=== PATIENT | female | born 1960 ===

== ENCOUNTER 2018-09-09 21:47 | Emergency (ER) | payer MEDICAID ==
[2018-09-09 22:10] VITALS: BMI 30.9
[2018-09-09 22:14] VITALS: RESP 18; TEMP 98.4
--- NOTE | 2018-09-09 22:47 | ED PDOC ---
Arrival/HPI - General Chief Complaint: Pain, Chronic Time Seen by Provider: 09/09/18 22:02 Historian: Patient - History of Present Illness Narrative History of Present Illness (Text): 09/09/18 22:53 57-year-old female presents today with a one-month history of right sided neck pain. Patient states the pain started one month ago when she woke up from sleep. Patient thought that it was just up muscle spasm in the neck and was applying ice to the area. Patient states over the past 3 weeks the symptoms have worsened and then she saw her primary care physician and was giving a shot in the office as well as baclofen. Patient states she's been taking baclofen at home for the past week without any improvement in her symptoms. She denies chest pain or shortness of breath. She denies any trauma or injury. Patient states occasion ally she'll have a tingling sensation in the right hand. Patient denies headaches dizziness or weakness. No other complaints Time/Duration: Other (1 month) Symptom Onset: Gradual Symptom Course: Worsening Quality: Aching Severity Level: Moderate Past Medical History - Provider Review Nursing Documentation Reviewed: Yes - Travel History Have you recently traveled outside [place] w/in the past 3 mons?: No - Infectious Disease Hx of Infectious Diseases: None - Reproductive Menopause: No Family/Social History - Physician Review Nursing Documentation Reviewed: Yes Family/Social History: Unknown Family HX Smoking Status: Never Smoked Hx Alcohol Use: No Hx Substance Use: No Allergies/Home Meds Allergies/Adverse Reactions: Allergies ibuprofen Adverse Reaction (Verified 09/09/18 22:33) VOMITING Review of Systems - Review of Systems Constitutional: absent: Fatigue, Fevers Respiratory: absent: SOB, Cough Cardiovascular: absent: Chest Pain, Palpitations Gastrointestinal: absent: Abdominal Pain, Nausea, Vomiting Genitourinary Female: absent: Dysuria, Frequency Musculoskeletal: Neck Pain. absent: Arthralgias, Back Pain Skin: absent: Rash, Pruritis Neurological: absent: Headache, Dizziness Psychiatric: absent: Anxiety, Depression Physical Exam Vital Signs Reviewed: Yes Vital Signs Temp Pulse Resp BP Pulse Ox 09/09/18 22:11 98.4 F 81 18 126/83 99 Temperature: Afebrile Blood Pressure: Normal Pulse: Regular Respiratory Rate: Normal Appearance: Positive for: Well-Appearing, Non-Toxic, Comfortable Pain Distress: None Mental Status: Positive for: Alert and Oriented X 3 - Systems Exam Head: Present: Atraumatic Mouth: Present: Moist Mucous Membranes Neck: Present: Normal Range of Motion, Paraspinal Tenderness (+ right sided paraspinal tenderness and right sided trapezius tenderness. no erythema. ), Trachea Midline. No: MIDLINE TENDERNESS Respiratory/Chest: Present: Clear to Auscultation, Good Air Exchange. No: Respiratory Distress, Accessory Muscle Use Cardiovascular: Present: Regular Rate and Rhythm, Normal S1, S2. No: Murmurs Back: Present: Normal Inspection Upper Extremity: Present: Normal Inspection, Normal ROM, Neurovascularly Intact, Capillary Refill < 2s. No: Tenderness, Swelling Neurological: Present: GCS=15 Skin: Present: Warm, Dry, Normal Color. No: Rashes Psychiatric: Present: Alert, Oriented x 3 Medical Decision Making ED Course and Treatment: 09/09/18 22:45 Patient nontoxic well-appearing in no distress with stable vital signs. pt with right sided neck pain x 1 month. no trauma or injury. xray c-spine; no fracture toradol ordered for pain; pt states when she takes ibuprofen it upsets her stomach but states that while in injection form it does not upset her stomach. valium given PO Patient reassessment: Feeling better with medications ambulating with a steady gait. Muscle strength 5 out of 5 bilaterally. I advised to followup with the orthopedist within the next 2 days. Return if symptoms worsen persist or new symptoms develop Impression: neck pain Tylenol every 4 hours as needed for pain Valium one tablet every 8 hours as needed for muscle spasms: May cause drowsiness Followup with the orthopedist/back specialist within the next 2 days Followup with primary care physician within the next 2 days Return if symptoms worsen persist or if new symptoms develop - RAD Interpretation Radiology Orders: 09/09/18 22:44 CERVICAL SPINE >18YR W/OBLIQUE [RAD] Stat - Medication Orders Current Medication Orders: Diazepam (Valium) 5 mg PO ONCE ONE Stop: 09/09/18 22:45 Ketorolac Tromethamine (Toradol) 60 mg IM STAT STA Stop: 09/09/18 22:45 Disposition/Present on Arrival - Present on Arrival Any Indicators Present on Arrival: No History of DVT/PE: No History of Uncontrolled Diabetes: No Urinary Catheter: No History of Decub. Ulcer: No History Surgical Site Infection Following: None - Disposition Have Diagnosis and Disposition been Completed?: Yes Diagnosis: Neck pain Disposition Time: 23:00 Condition: GOOD Discharge Instructions (ExitCare): Generalized Neck Pain Additional Instructions: Tylenol every 4 hours as needed for pain Valium one tablet every 8 hours as needed for muscle spasms: May cause drowsiness Followup with the orthopedist/back specialist within the next 2 days Followup with primary care physician within the next 2 days Return if symptoms worsen persist or if new symptoms develop Prescriptions: diaZEpam [Valium] 5 mg PO Q8 PRN #10 tab PRN Reason: Muscle Spasm Referrals: Keshawn Salvador MD [Staff Provider] - Follow up with primary Christoph Powers MD [Staff Provider] - Follow up with primary Jenniffer Ward MD [Medical Doctor] - Follow up with primary [facility] [Outside] - Follow up with primary [facility] [Outside] - Follow up with primary Forms: [facility] ([place]), WORK NOTE
[2018-09-10 01:18] VITALS: BP 129/78; PULSE 87; O2SAT 100
--- NOTE | 2018-09-10 13:22 | RAD ---
Date of service: 09/09/2018 PROCEDURE: Cervical Spine Radiographs. HISTORY: Pain. COMPARISON: None available. FINDINGS: BONES: Alignment maintained. Multilevel degenerative changes including small osteophyte formation. No acute displaced fracture identified. Dens tip appears intact. DISC SPACES: Unremarkable. SOFT TISSUES: Unremarkable. No prevertebral soft tissue swelling. OTHER FINDINGS: None. IMPRESSION: Degenerative changes. If persistent clinical concern, suggest MRI for further evaluation.
== END 2018-09-09 23:02 | disposition home or self-care (01) ==
LOC: MERGE 21:47 → ED 21:47
DX: M54.2 Cervicalgia (principal)
CPT/HCPCS: 72050; 96372; 99283; J1885